=== PATIENT | male | born 1965 | race Caucasian/White ===

== ENCOUNTER 2019-07-22 01:24 | Observation (INO) ==
[2019-07-22 01:46] LABS: Basophils # 0.1 K/mcL (0.0-0.2); Basophils % 0.5 %; Eosinophils # 0.2 K/mcL (0.0-0.6); Eosinophils % 1.1 %; Hematocrit 43.6 % (37.5-50.1); Hemoglobin 14.8 g/dL (12.9-16.9); Immature Granulocytes % 0.3 % (0-4); Lymphocytes # 1.9 K/mcL (0.6-4.6); Mean Corpuscular HGB Conc 33.9 g/dL (31.6-35.5); Mean Corpuscular Volume 85.5 fL (83.0-100.0); Mean Platelet Volume 9.1 fL (9.4-12.4); Monocytes # 0.8 K/mcL (0.0-1.3); Monocytes % 5.8 %; Neutrophils # 10.9 K/mcL (1.6-8.9); Platelet Count 362 K/mcL (140-400); Red Cell Distribution Width 13.7 % (11.5-14.5); Segmented Neutrophils % 78.3 %; White Blood Count 13.9 K/mcL (4.3-11.1)
[2019-07-22 01:53] LABS: INR 1.1; Prothrombin Time 12.2 Seconds (9.4-12.1)
[2019-07-22 01:55] LABS: Activated Partial Thrombo Time 27.4 Seconds (26.0-36.0)
[2019-07-22 02:06] LABS: BUN/Creatinine Ratio 11 (6-26); Blood Urea Nitrogen 9 mg/dL (6-20); Calcium 9.2 mg/dL (8.6-10.3); Carbon Dioxide 25 mEq/L (23-29); Chloride 96 mEq/L (98-107); Ethanol 171 mg/dL (Less than 10); Glucose 128 mg/dL (70-105); Osmolality,Calculated 272 (280-300); Potassium 3.6 mEq/L (3.5-5.1); Sodium 131 mEq/L (136-145); eGFR For African Americans > 60 (> 60); eGFR For Non-African Americans > 60 (> 60)
[2019-07-22 02:18] LABS: Troponin I < 0.03 ng/mL (< 0.04)
[2019-07-22 02:25] LABS: Bilirubin,Urine Negative (Negative); Blood,Urine Negative (Negative); Clarity,Urine Clear (Clear); Color,Urine Yellow (Yellow); Glucose,Urine (UA) Normal (Normal); Ketones,Urine Negative (Negative); Leukocyte Esterase,Urine Negative (Negative); Nitrite,Urine Negative (Negative); Protein,Urine 30 mg/dL (Neg-Trace); Specific Gravity,Urine 1.017 (1.010-1.025); Urobilinogen,Urine Normal (Normal)
[2019-07-22 02:27] LABS: Bacteria,Urine None Seen per hpf (None-Few); Hyaline Casts,Urine None Seen per lpf (None-Few); RBC,Urine 0-3 per hpf (0-3); Squamous Epithelial Cell,Urine Few per lpf (None-Few); WBC,Urine 0-3 per hpf (0-3)
[2019-07-22] MEDS ORDERED: Ondansetron ODT 4 MG TAB.RAPDIS SL PRN (03:31)
[2019-07-22] MEDS ORDERED: *HR* LORazepam 2 MG/ML VIAL IVP PRN ×3 (03:31)
[2019-07-22] MEDS ORDERED: Nicotine 2 MG GUM BC PRN (03:31)
[2019-07-22] MEDS ORDERED: Naloxone 0.4 MG/ML INJ IVP PRN (03:31)
[2019-07-22] MEDS ORDERED: Thiamine (B-1) 100 MG, Folic Acid 1 MG, MVI, adult with vitamin K 10 ML in 0.9 % Sodi... IVPB SCH (04:00)
[2019-07-22] MEDS: 0.9 % Sodium Chloride 1,000 ML IVC SCH ×2 (04:09→13:42)
[2019-07-22 05:05] LABS: Estimated Average Glucose 126 mg/dl
[2019-07-22 05:09] LABS: Albumin 3.8 g/dL (3.5-5.7); Albumin/Globulin Ratio 1.4 (1.1-2.2); Bilirubin,Direct 0.1 mg/dL (0.0-0.2); Bilirubin,Indirect 0.2 mg/dL (0.0-1.0); Bilirubin,Total 0.3 mg/dL (0.3-1.0); Globulin 2.7 g/dL (2.4-3.5); Magnesium 1.9 mg/dL (1.6-2.6); Phosphorous 3.1 mg/dL (2.7-4.5); Total Protein 6.5 g/dL (6.4-8.9)
[2019-07-22 05:36] LABS: Thyroid Stimulating Hormone 0.432 mcIU/mL (0.340-5.600)
[2019-07-22] MEDS ORDERED: *HR* Heparin 5,000 UNIT/ML VIAL SQ SCH (06:00)
[2019-07-22] MEDS ORDERED: Nicotine 14 MG PATCH.TD24 TD SCH (09:00)
[2019-07-22] MEDS ORDERED: Acetaminophen 325 MG TABLET PO PRN (12:02)
[2019-07-22 15:23] VITALS: BP 127/80
[2019-07-23] MEDS ORDERED: Vitamin B Complex/Vit C/Vit E 1 EACH TABLET PO SCH (09:00)
[2019-07-23] MEDS ORDERED: Folic Acid 1 MG TABLET PO SCH (09:00)
[2019-07-23] MEDS ORDERED: Thiamine (B-1) 100 MG TABLET PO SCH (09:00)
== END 2019-07-22 14:32 | disposition home or self-care (01) ==
LOC: 2ANU 01:24 → EMEROOARM 01:24 → SUATTDRO 03:09 → 2ANU 03:26
PROVIDERS: ADMIT Internal Medicine; ATTEND Internal Medicine

== ENCOUNTER 2021-12-21 18:40 | Observation (INO) ==
[2021-12-21 19:32] LABS: Bilirubin,Urine Negative (Negative); Blood,Urine Negative (Negative); Clarity,Urine Clear (Clear); Color,Urine Light-Yellow (Yellow); Glucose,Urine (UA) Normal (Normal); Hyaline Casts,Urine Few per lpf (None Seen); Ketones,Urine Negative (Negative); Leukocyte Esterase,Urine Negative (Negative); Mucus,Urine Few per lpf (None-Few); Nitrite,Urine Negative (Negative); PH,Urine 6.5 pH Units (5.0-8.0); Protein,Urine 30 mg/dL (Neg-Trace); RBC,Urine 0-3 per hpf (0-3); Specific Gravity,Urine 1.009 (1.010-1.025); Urobilinogen,Urine Normal (Normal); WBC,Urine 0-3 per hpf (0-3)
[2021-12-21 19:33] LABS: Basophils # 0.1 K/mcL (0.0-0.2); Basophils % 1.2 %; Eosinophils # 0.2 K/mcL (0.0-0.6); Hematocrit 52.9 % (37.5-50.1); Hemoglobin 19.1 g/dL (12.9-16.9); Immature Granulocytes % 0.3 % (0-4); Lymphocytes # 2.6 K/mcL (0.6-4.6); Lymphocytes % 27.6 %; Mean Corpuscular HGB Conc 36.1 g/dL (31.6-35.5); Mean Corpuscular Hemoglobin 31.3 pg (28.0-33.3); Mean Corpuscular Volume 86.7 fL (83.0-100.0); Mean Platelet Volume 8.7 fL (9.4-12.4); Monocytes % 10.5 %; Neutrophils # 5.6 K/mcL (1.6-8.9); Platelet Count 320 K/mcL (140-400); Red Cell Distribution Width 13.2 % (11.5-14.5); Segmented Neutrophils % 58.4 %; White Blood Count 9.6 K/mcL (4.3-11.1)
[2021-12-21 19:38] LABS: Amphetamine Screen,Urine Negative ng/mL (Cutoff=1000); Barbiturate Screen,Urine Negative ng/mL (Cutoff=200); Benzodiazepines Screen,Urine Negative ng/mL (Cutoff=200); Cannabinoid Screen,Urine Negative ng/mL (Cutoff = 50); Cocaine Screen,Urine Negative ng/mL (Cutoff= 300); Opiate Screen,Urine Negative ng/mL (Cutoff=300); Phencyclidine Screen,Urine Negative ng/mL (Cutoff=25)
[2021-12-21 19:49] LABS: Acetaminophen < 10 mcg/mL (10-20); Blood Urea Nitrogen 8 mg/dL (6-20); Calcium 9.3 mg/dL (8.6-10.3); Carbon Dioxide 22 mEq/L (23-29); Chloride 97 mEq/L (98-107); Ethanol 309 mg/dL (Less than 10); Glucose 87 mg/dL (70-105); Osmolality,Calculated 276 (280-300); Potassium 4.4 mEq/L (3.5-5.1); Salicylate < 2.5 mg/dL (15.0-30.0); Sodium 134 mEq/L (136-145)
[2021-12-21 20:19] LABS: BUN/Creatinine Ratio 9 (6-26); eGFR For African Americans > 60 (> 60); eGFR For Non-African Americans > 60 (> 60)
[2021-12-21] MEDS ORDERED: Nicotine 21 MG PATCH.TD24 TD ONE (20:45)
[2021-12-22] MEDS: Nicotine 21 MG PATCH.TD24 TD SCH ×2 (00:26→09:28)
[2021-12-22] MEDS ORDERED: *HR* LORazepam 2 MG/ML VIAL IM ONE (09:10)
[2021-12-22] MEDS ORDERED: Melatonin 3 MG TABLET PO PRN (09:29)
[2021-12-22] MEDS ORDERED: Ondansetron 4 MG/2 ML VIAL IVP PRN (09:29)
[2021-12-22] MEDS ORDERED: 0.9 % Sodium Chloride 1,000 ML IVC SCH (09:30)
[2021-12-22 09:36] LABS: Alanine Aminotransferase 28 Units/L (7-52); Albumin 4.6 g/dL (3.5-5.7); Albumin/Globulin Ratio 1.4 (1.1-2.2); Alkaline Phosphatase 87 Units/L (34-104); Aspartate Amino Transferase 36 Units/L (13-39); Bilirubin,Direct 0.1 mg/dL (0.0-0.2); Bilirubin,Indirect 0.2 mg/dL (0.0-1.0); Bilirubin,Total 0.3 mg/dL (0.3-1.0); Globulin 3.4 g/dL (2.4-3.5)
[2021-12-22] MEDS ORDERED: *HR* LORazepam 2 MG/ML VIAL IVP PRN ×3 (09:37)
[2021-12-22] MEDS: Vitamin B Complex/Vit C/Vit E 1 EACH TABLET PO SCH (11:06)
[2021-12-22] MEDS: Thiamine (B-1) 100 MG TABLET PO SCH (11:06)
[2021-12-22] MEDS: *HR* Heparin 5,000 UNIT/ML VIAL SQ SCH (18:14)
[2021-12-23 01:58] LABS: Basophils # 0.1 K/mcL (0.0-0.2); Basophils % 0.9 %; Eosinophils # 0.2 K/mcL (0.0-0.6); Eosinophils % 1.9 %; Hematocrit 47.2 % (37.5-50.1); Immature Granulocytes % 0.4 % (0-4); Lymphocytes # 2.8 K/mcL (0.6-4.6); Lymphocytes % 28.9 %; Mean Corpuscular HGB Conc 35.6 g/dL (31.6-35.5); Mean Corpuscular Hemoglobin 30.9 pg (28.0-33.3); Mean Corpuscular Volume 86.9 fL (83.0-100.0); Mean Platelet Volume 9.2 fL (9.4-12.4); Monocytes # 1.1 K/mcL (0.0-1.3); Monocytes % 11.9 %; Neutrophils # 5.4 K/mcL (1.6-8.9); Platelet Count 275 K/mcL (140-400); Red Blood Count 5.43 M/mcL (4.19-5.50); White Blood Count 9.6 K/mcL (4.3-11.1)
[2021-12-23 02:07] LABS: Hemoglobin 16.8 g/dL (12.9-16.9)
[2021-12-23 02:15] LABS: Blood Urea Nitrogen 10 mg/dL (6-20); Calcium 9.3 mg/dL (8.6-10.3); Carbon Dioxide 26 mEq/L (23-29); Chloride 96 mEq/L (98-107); Glucose 84 mg/dL (70-105); Osmolality,Calculated 272 (280-300); Potassium 3.7 mEq/L (3.5-5.1); Sodium 132 mEq/L (136-145)
[2021-12-23 03:22] LABS: BUN/Creatinine Ratio 12 (6-26); eGFR For African Americans > 60 (> 60); eGFR For Non-African Americans > 60 (> 60)
[2021-12-23] MEDS: *HR* Heparin 5,000 UNIT/ML VIAL SQ SCH ×2 (05:25→17:13)
[2021-12-23] MEDS: Nicotine 21 MG PATCH.TD24 TD SCH (07:42)
[2021-12-23] MEDS: Thiamine (B-1) 100 MG TABLET PO SCH (07:42)
[2021-12-23] MEDS: Vitamin B Complex/Vit C/Vit E 1 EACH TABLET PO SCH (07:42)
[2021-12-23] MEDS: Folic Acid 1 MG TABLET PO SCH (07:42)
[2021-12-23] MEDS ORDERED: NON-FORMULARY MEDICATION 1 EACH EACH (Hydroxyzine Hcl [Hydroxyzine Hcl] 25 MG Tablet) PO PRN (15:33)
[2021-12-24] MEDS: *HR* Heparin 5,000 UNIT/ML VIAL SQ SCH ×2 (05:53→16:08)
[2021-12-24] MEDS: Thiamine (B-1) 100 MG TABLET PO SCH (08:51)
[2021-12-24] MEDS: Folic Acid 1 MG TABLET PO SCH (08:52)
[2021-12-24] MEDS: Vitamin B Complex/Vit C/Vit E 1 EACH TABLET PO SCH (08:52)
[2021-12-24] MEDS: Nicotine 21 MG PATCH.TD24 TD SCH (08:52)
[2021-12-25 06:22] LABS: BUN/Creatinine Ratio 13 (6-26); Blood Urea Nitrogen 11 mg/dL (6-20); Calcium 9.4 mg/dL (8.6-10.3); Carbon Dioxide 28 mEq/L (23-29); Chloride 100 mEq/L (98-107); Glucose 97 mg/dL (70-105); Osmolality,Calculated 279 (280-300); Potassium 3.6 mEq/L (3.5-5.1); Sodium 135 mEq/L (136-145); eGFR For African Americans > 60 (> 60); eGFR For Non-African Americans > 60 (> 60)
[2021-12-25 09:06] VITALS: BP 111/88; PULSE 93; TEMP 98.2; O2SAT 96
[2021-12-25] MEDS: *HR* Heparin 5,000 UNIT/ML VIAL SQ SCH (09:38)
[2021-12-25] MEDS: Vitamin B Complex/Vit C/Vit E 1 EACH TABLET PO SCH (09:39)
[2021-12-25] MEDS: Folic Acid 1 MG TABLET PO SCH (09:39)
[2021-12-25] MEDS: Nicotine 21 MG PATCH.TD24 TD SCH (09:39)
[2021-12-25] MEDS: Thiamine (B-1) 100 MG TABLET PO SCH (09:39)
[2021-12-25 12:43] LABS: Adenovirus Not Detected (Not Detect); Bordetella Pertussis Not Detected (Not Detect); Chlamydophila pneumoniae Not Detected (Not Detect); Coronavirus 229E Not Detected (Not Detect); Coronavirus HKU1 Not Detected (Not Detect); Coronavirus NL63 Not Detected (Not Detect); Coronavirus OC43 Not Detected (Not Detect); Human Metapneumovirus Not Detected (Not Detect); Human Rhinovirus/Enterovirus Not Detected (Not Detect); Influenza A Subtype 2009 H1 Not Detected (Not Detect); Influenza B Not Detected (Not Detect); Mycoplasma pneumoniae Not Detected (Not Detect); Parainfluenza Virus 1 Not Detected (Not Detect); Parainfluenza Virus 2 Not Detected (Not Detect); Parainfluenza Virus 3 Not Detected (Not Detect); Parainfluenza Virus 4 Not Detected (Not Detect); Respiratory Syncytial Virus Not Detected (Not Detect); SARS-CoV-2 Not Detected (Not Detect)
== END 2021-12-25 13:50 | disposition other institution (70) ==
LOC: 3NENU 18:40 → EMEROOARM 18:40 → SUATTDRO 12-22 13:31 → 3NENU 12-22 17:18
PROVIDERS: ADMIT Internal Medicine; ATTEND General Practice

== ENCOUNTER 2021-12-25 13:42 | Inpatient (IN) ==
[2021-12-25] MEDS ORDERED: Nicotine 2 MG GUM BC PRN (14:02)
[2021-12-25] MEDS ORDERED: *HR* LORazepam 1 MG TABLET PO PRN (14:02)
[2021-12-25] MEDS ORDERED: Mag Hydrox/Al Hydrox/Simeth 30 ML UDC PO PRN (14:02)
[2021-12-25] MEDS ORDERED: MOM Conc 10 ML UD.LIQ PO PRN (14:02)
[2021-12-25] MEDS ORDERED: Acetaminophen 325 MG TABLET PO PRN (14:02)
[2021-12-25] MEDS ORDERED: Haloperidol Lactate 5 MG/ML VIAL IM PRN (14:02)
[2021-12-25] MEDS ORDERED: haloperidoL 5 MG TABLET PO PRN (14:02)
[2021-12-25] MEDS ORDERED: *HR* LORazepam 2 MG/ML VIAL IM PRN (14:02)
[2021-12-25] MEDS: Nicotine 21 MG PATCH.TD24 TD SCH (15:56)
[2021-12-25] MEDS: hydrOXYzine pamoate 25 MG CAPSULE PO PRN (20:14)
[2021-12-25] MEDS: traZODone 50 MG TABLET PO PRN (20:14)
[2021-12-26] MEDS: Thiamine (B-1) 100 MG TABLET PO SCH (08:20)
[2021-12-26] MEDS: Vitamin B Complex/Vit C/Vit E 1 EACH TABLET PO SCH (08:20)
[2021-12-26] MEDS: Folic Acid 1 MG TABLET PO SCH (08:20)
[2021-12-26] MEDS: Nicotine 21 MG PATCH.TD24 TD SCH (08:21)
[2021-12-26] MEDS: hydrOXYzine pamoate 25 MG CAPSULE PO PRN (19:59)
[2021-12-26] MEDS: traZODone 50 MG TABLET PO PRN (19:59)
[2021-12-27] MEDS: Vitamin B Complex/Vit C/Vit E 1 EACH TABLET PO SCH (08:52)
[2021-12-27] MEDS: Nicotine 21 MG PATCH.TD24 TD SCH (08:52)
[2021-12-27] MEDS: Folic Acid 1 MG TABLET PO SCH (08:52)
[2021-12-27] MEDS: Thiamine (B-1) 100 MG TABLET PO SCH (08:52)
[2021-12-28] MEDS: Folic Acid 1 MG TABLET PO SCH (08:36)
[2021-12-28] MEDS: Nicotine 21 MG PATCH.TD24 TD SCH (08:36)
[2021-12-28] MEDS: Thiamine (B-1) 100 MG TABLET PO SCH (08:36)
[2021-12-28] MEDS: Vitamin B Complex/Vit C/Vit E 1 EACH TABLET PO SCH (08:36)
[2021-12-28 21:18] VITALS: O2SAT 97
[2021-12-29] MEDS: Nicotine 21 MG PATCH.TD24 TD SCH (08:45)
[2021-12-29] MEDS: Vitamin B Complex/Vit C/Vit E 1 EACH TABLET PO SCH (08:46)
[2021-12-29] MEDS: Folic Acid 1 MG TABLET PO SCH (08:46)
[2021-12-29] MEDS: Thiamine (B-1) 100 MG TABLET PO SCH (08:46)
[2021-12-29 09:06] VITALS: BP 118/84; PULSE 92; TEMP 97.5
== END 2021-12-29 13:47 | disposition home or self-care (01) | DRG 885 ==
LOC: 1ANU 13:42
PROVIDERS: ADMIT Psychiatry & Neurology Psychiatry; ATTEND Psychiatry & Neurology Psychiatry